=== PATIENT | female | born 1990 | race Hispanic/Latino ===

== ENCOUNTER 2020-09-22 19:58 | Inpatient (IN) | payer MEDICAID, OTHER ==
[2020-09-22 20:34] VITALS: BMI 33.0
[2020-09-22] MEDS ORDERED: NS / Oxytocin 40 units/1000ml 1,000 ML IV PRN (20:50)
[2020-09-22] MEDS ORDERED: HYDROcodone/Acetaminophen 5/325 mg Tablet PO PRN (20:50)
[2020-09-22] MEDS ORDERED: Lidocaine 1% (PF) 30 ML VIAL SC PRN (20:50)
[2020-09-22] MEDS ORDERED: hydrALAZINE 20 MG/ML VIAL SLOW IVP PRN (20:50)
[2020-09-22] MEDS ORDERED: Butorphanol Tartrate 1 MG/ML VIAL SLOW IVP PRN (20:50)
[2020-09-22] MEDS ORDERED: Ibuprofen 800 MG TAB PO PRN (20:50)
[2020-09-22] MEDS ORDERED: Ondansetron PF 4 MG/2 ML Vial IVP PRN ×2 (20:50→22:59)
[2020-09-22] MEDS ORDERED: Lactated Ringer's 1,000 ML IV SCH (21:00)
[2020-09-22 21:31] LABS: Hemoglobin 11.4 g/dL (12.0-16.0); Mean Corpuscular HGB CONC 34.9 g/dL (32.0-36.0); Mean Corpuscular Hemoglobin 33.5 pg (27.0-31.0); Mean Corpuscular Volume 95.9 fL (78.0-98.0); Mean Platelet Volume 7.4 fL (7.4-10.4); Platelet Count 164 thou/uL (130-400); RBC Distribution Width 13.1 % (11.5-14.5); Red Blood Cell (RBC) Count 3.39 mill/uL (4.20-5.40); White Blood Cell (WBC) Count 5.5 thou/uL (4.8-10.8)
[2020-09-22] MEDS ORDERED: Fentanyl 4 mcg/Bup 0.1% Cadd 100 ML ONE (22:19)
[2020-09-22 22:32] LABS: Syphilis Antibody Nonreactive (Nonreactive); Syphilis Antibody Index 0.02 S/CO (<1.00 Non-Reactive)
[2020-09-22] MEDS ORDERED: Naloxone HCl 0.4 mg/ml Vial IVP PRN ×2 (22:59)
[2020-09-22] MEDS ORDERED: Lactated Ringer's 500 ML IV PRN (22:59)
[2020-09-22] MEDS ORDERED: Promethazine HCl 25 MG/ML VIAL IM PRN (22:59)
[2020-09-22] MEDS ORDERED: Acetaminophen 325 MG TAB PO PRN (22:59)
[2020-09-22] MEDS ORDERED: diphenhydrAMINE 50 MG/ML VIAL IVP PRN (22:59)
[2020-09-22] MEDS ORDERED: ePHEDrine 50 MG/ML VIAL SLOW IVP PRN (22:59)
[2020-09-22] MEDS ORDERED: Communication Order-Pharmacy FS SCH (23:00)
[2020-09-22] MEDS ORDERED: Fentanyl 4 mcg/Bupivacaine 0.1% Cassette 100 ML EPIDURAL SCH (23:00)
[2020-09-22] MEDS ORDERED: NS w/ Oxytocin 30 units 500 ML ONE (23:05)
[2020-09-23] MEDS ORDERED: Lidocaine 1% (PF) 30 ML VIAL ONE (01:14)
[2020-09-23 01:52] LABS: HBSAg Index 0.15 S/CO (0-0.99); Hep B Surf Ag Non-Reactive S/CO (NonReactive)
[2020-09-23] MEDS ORDERED: NS w/ Oxytocin 30 units 500 ML ONE (02:20)
[2020-09-23] MEDS ORDERED: Lanolin Ointment 7 GM TUBE TOP PRN (04:30)
[2020-09-23] MEDS ORDERED: Promethazine HCl 25 MG/ML VIAL IM PRN (04:30)
[2020-09-23] MEDS ORDERED: Ondansetron PF 4 MG/2 ML Vial IVP PRN (04:30)
[2020-09-23] MEDS ORDERED: diphenhydrAMINE 25 MG CAP PO PRN (04:30)
[2020-09-23] MEDS ORDERED: HYDROcodone/Acetaminophen 5/325 mg Tablet PO PRN (04:30)
[2020-09-23] MEDS ORDERED: Milk Of Magnesia 30 ML UDCUP PO PRN (04:30)
[2020-09-23] MEDS ORDERED: Bisacodyl 10 MG SUPP PR PRN (04:30)
[2020-09-23] MEDS ORDERED: hydrALAZINE 20 MG/ML VIAL SLOW IVP PRN (04:30)
[2020-09-23] MEDS ORDERED: NS w/ Oxytocin 30 units 500 ML IV SCH (04:45)
[2020-09-23] MEDS ORDERED: Adacel (T-DAP) 0.5 ML SYRINGE IM ONE (09:00)
[2020-09-23] MEDS: Ibuprofen 800 MG TAB PO SCH ×3 (09:06→22:01)
[2020-09-23] MEDS: Prenatal Vitamin 1 TAB PO SCH (15:46)
[2020-09-23] MEDS: Docusate Calcium (SURFAK) 240 MG CAP PO SCH ×2 (15:46→22:00)
[2020-09-23] MEDS: Ferrous Sulfate 325 MG TAB PO SCH (15:46)
[2020-09-24] MEDS: Ferrous Sulfate 325 MG TAB PO SCH ×3 (04:29→20:05)
[2020-09-24] MEDS: Ibuprofen 800 MG TAB PO SCH ×3 (06:32→21:46)
[2020-09-24] MEDS: Prenatal Vitamin 1 TAB PO SCH (09:23)
[2020-09-24] MEDS: Docusate Calcium (SURFAK) 240 MG CAP PO SCH ×2 (09:23→21:47)
[2020-09-24 17:43] LABS: SARS-CoV-2 PCR by NAA Not Detected (NotDetected)
[2020-09-25] MEDS: Ibuprofen 800 MG TAB PO SCH (05:57)
[2020-09-25 08:12] VITALS: BP 103/55; TEMP 99
[2020-09-25] MEDS: Prenatal Vitamin 1 TAB PO SCH (08:56)
[2020-09-25] MEDS: Docusate Calcium (SURFAK) 240 MG CAP PO SCH (08:56)
[2020-09-25] MEDS: Ferrous Sulfate 325 MG TAB PO SCH (08:56)
== END 2020-09-25 13:45 | disposition home or self-care (01) | DRG 807 ==
LOC: L&D/OP 19:58 → L&D 20:59 → 3SW 09-23 12:46
PROVIDERS: ADMIT Family Medicine; ATTEND Family Medicine
PROC: 10E0XZZ Delivery of Products of Conception, External Approach (ICD-10-PCS; principal; 2020-09-22)
DX: O80 Encounter for full-term uncomplicated delivery (principal); Z37.0 Single live birth; Z3A.37 37 weeks gestation of pregnancy; Z20.822 Contact with and (suspected) exposure to COVID-19
CPT/HCPCS: 36415; 51702; 85027; 86780; 86850; 86900; 86901; 87340; 87635; 99285; J2590; U0003; U0005

== ENCOUNTER 2021-05-20 13:58 | Emergency (ER) | payer OTHER ==
[2021-05-21 00:05] LABS: SARS-CoV-2 PCR by NAA DETECTED (NotDetected)
== END 2021-05-20 15:50 | disposition home or self-care (01) ==
LOC: ERS 13:58
DX: U07.1 COVID-19 (principal)
CPT/HCPCS: 99283; U0003; U0005